=== PATIENT | female | born 1995 | race Caucasian/White ===

== ENCOUNTER → 2022-01-03 | Outpatient (CLI) | payer BC, SELFPAY ==
[2022-01-03 17:25] LABS: hCG Titer Quant., Serum 444 mIU/mL (1-3)
== END | disposition home or self-care (01) ==
LOC: LAB 16:12
PROVIDERS: Nurse Practitioner Women's Health; PCP Family Medicine; Referring Provider Obstetrics & Gynecology; Visit Provider Obstetrics & Gynecology
DX: N91.2 Amenorrhea, unspecified (principal)
CPT/HCPCS: 36415; 84702

== ENCOUNTER → 2022-01-05 | Outpatient (CLI) | payer BC, SELFPAY ==
[2022-01-05 18:03] LABS: hCG Titer Quant., Serum 845 mIU/mL (1-3)
== END | disposition home or self-care (01) ==
LOC: LAB 16:07
PROVIDERS: PCP Family Medicine; Referring Provider Nurse Practitioner Women's Health; Visit Provider Nurse Practitioner Women's Health
DX: N91.2 Amenorrhea, unspecified (principal)
CPT/HCPCS: 36415; 84702

== ENCOUNTER → 2022-01-24 | Outpatient (CLI) | payer BC, SELFPAY ==
[2022-01-24 12:22] LABS: Amphetamine Urine VISTA NEGATIVE (<1000 ng/mL); Barbiturate Urine VISTA NEGATIVE (< 200 ng/mL); Benzodiazepine Urine VISTA NEGATIVE (< 200 ng/mL); Cocaine Urine VISTA NEGATIVE (< 300 ng/mL); Ecstacy Urine VISTA NEGATIVE (< 500 ng/mL); Methadone Urine VISTA NEGATIVE (< 300 ng/mL); PCP Urine VISTA NEGATIVE (< 25 ng/mL); THC Urine VISTA NEGATIVE (< 50 ng/mL); Vista UDS pH Range 7
[2022-01-25 22:07] LABS: Chlamydia By Nucleic Acid AMP Negative (Negative)
[2022-01-25 22:29] LABS: Gonococcus By Nucleic Acid AMP Negative (Negative)
== END | disposition home or self-care (01) ==
LOC: LABSPEC 01-27 04:54
PROVIDERS: PCP Family Medicine; Visit Provider Obstetrics & Gynecology
DX: Z34.80 Encounter for supervision of other normal pregnancy, unspecified trimester (principal)
CPT/HCPCS: 80307; 87086; 87088; 87491; 87591

== ENCOUNTER 2022-02-20 16:55 | Outpatient (CLI) | payer BC, SELFPAY ==
[2022-02-20 18:02] LABS: NATERA MAILED SPECIMEN
== END 2022-02-20 23:59 | disposition home or self-care (01) ==
LOC: LAB 16:58
PROVIDERS: PCP Family Medicine; Referring Provider Obstetrics & Gynecology; Visit Provider Obstetrics & Gynecology
DX: Z00.00 Encounter for general adult medical examination without abnormal findings (principal)
CPT/HCPCS: 36415

== ENCOUNTER → 2022-03-30 | Outpatient (CLI) | payer BC, SELFPAY ==
--- NOTE | 2022-03-30 09:13 | US_ITS ---
EXAM: US , LIMITED CLINICAL INDICATION: bleeding TECHNIQUE: Real-time limited ultrasound of the maternal uterus with image documentation. This report was created using CoaLogixcriptor report generation technology. COMPARISON: None. FINDINGS: FETUS: Single live intrauterine gestation in variable lie and presentation. HEART RATE: cardiac rate is 148 bpm. PLACENTA: Anterior placenta without previa. Inferior margin of the placenta is 2.5 cm from the internal cervical os. CERVIX: Endocervical canal measures 3.9 cm in length by endovaginal scan. IMPRESSION: Live fetus without evidence of placenta previa or cervical effacement. Electronically Signed: Bennett Jenkins MD at 15:53 EDT , [email or web address] Unformatted Report Format: Options: n 2f 2i act cap dr moody wm wcta sl lj Gender: Female Age: 27 years Exam: US OB Transvaginal Comparison: History: bleeding Contrast: EXAM: US , LIMITED CLINICAL INDICATION: bleeding TECHNIQUE: Real-time limited ultrasound of the maternal uterus with image documentation. This report was created using Co[employer]Logixcriptor report generation technology. COMPARISON: None. FINDINGS: FETUS: Single live intrauterine gestation in variable lie and presentation. HEART RATE: cardiac rate is 148 bpm. PLACENTA: Anterior placenta without previa. Inferior margin of the placenta is 2.5 cm from the internal cervical os. CERVIX: Endocervical canal measures 3.9 cm in length by endovaginal scan. US/OB Limited (No Biometrics) IMPRESSION: Live fetus without evidence of placenta previa or cervical effacement. Electronically Signed: Bennett Jenkins MD at 15:54 EDT ,
== END | disposition home or self-care (01) ==
LOC: OPUS 09:13
PROVIDERS: PCP Family Medicine; Referring Provider Obstetrics & Gynecology; Visit Provider Obstetrics & Gynecology
DX: O26.859 Spotting complicating pregnancy, unspecified trimester (principal); Z3A.00 Weeks of gestation of pregnancy not specified
CPT/HCPCS: 76815; 76817

== ENCOUNTER → 2022-05-17 | Outpatient (CLI) | payer BC, SELFPAY ==
[2022-05-17 16:45] LABS: Absolute Lymphocyte Count 2.04 X10^3/uL (0.83-4.51); Absolute Neutrophil Count 6.8 X10^3/uL (2.0-7.7); Basophil# 0.02 X10^3/uL; Basophil% 0.2 % (0-1); Eosinophil# 0.09 X10^3/uL; Eosinophils% 0.9 % (0-5); Hematocrit 36.1 % (37-47); Lymphocyte # 2.04 X10^3/ul (0.83-4.51); Lymphocyte % 20.6 % (19-41); Mean Corp Hgb Conc 33.2 g/dL (32-36); Mean Corpuscular Hgb 28.1 pg (27.0-32.0); Mean Corpuscular Volume 84.5 fL (81-99); Mean Platelet Vol. 9.5 fl (6.2-12.0); Monocyte# 0.88 X10^3/uL; Monocyte% 8.9 % (0-10); NRBC Flagged by Analyzer 0 % (0-5); Neutrophil # 6.78 X10^3/uL (2.7-7.7); Neutrophil % 68.3 % (47-70); Platelet Count 340 K/mm3 (150-450); RBC Distribution Width CV 14.4 % (11.6-14.6); RBC Distribution Width SD 44.8 fl (35.1-43.9); Red Blood Count 4.27 M/mm3 (4.2-5.4); White Blood Count 9.9 K/mm3 (4.4-11.0)
[2022-05-18 08:51] LABS: HIV - WCH Non-Reactive (Nonreactive); Hepatitis B Surface Antigen Non-Reactive (Nonreactive); Hepatitis C Antibody Non-Reactive (Nonreactive); Rubella IgG Reactive (Nonreactive); Syphilis Antibodies Non-reactive
== END | disposition home or self-care (01) ==
LOC: LAB 16:05
PROVIDERS: PCP Family Medicine; Visit Provider Obstetrics & Gynecology
DX: Z34.80 Encounter for supervision of other normal pregnancy, unspecified trimester (principal)
CPT/HCPCS: 36415; 85025; 86703; 86762; 86780; 86803; 86850; 86900; 86901; 87340

== ENCOUNTER → 2022-06-12 | Outpatient (CLI) | payer BC, SELFPAY ==
[2022-06-12 16:07] LABS: Glucose Challenge Gest 1H 50g 133 mg/dL (70-140)
== END | disposition home or self-care (01) ==
LOC: PAVLAB 15:25
PROVIDERS: PCP Family Medicine; Referring Provider Obstetrics & Gynecology; Visit Provider Obstetrics & Gynecology
DX: Z34.80 Encounter for supervision of other normal pregnancy, unspecified trimester (principal)
CPT/HCPCS: 36415; 82950

== ENCOUNTER → 2022-06-19 | Outpatient (CLI) | payer BC, SELFPAY ==
--- NOTE | 2022-06-19 15:00 | US_ITS ---
STUDY: SECOND AND THIRD TRIMESTER OBSTETRICAL ULTRASOUND - LIMITED REASON FOR EXAM: Female, 27 years old. placenta follow-up -- 28 weeks PRIOR ULTRASOUND: 03/30/2022. TECHNIQUE: Transabdominal and Transvaginal TECHNICAL QUALITY: Adequate. FINDINGS: There is a single intrauterine fetus. The fetus is in a breech presentation. There is demonstrated cardiac activity with a heart rate of 145 bpm. There is a normal amniotic fluid volume. The largest amniotic fluid pocket measures 3.8 cm. The placenta is anterior in location and is not low lying. There are Grade 0 placental changes. The cervix measures cm in length: 4.6. Placental tip is 47mm from the internal cervical os. BIOMETRY: not obtained. Age by LMP: 28 weeks, 1 days. ANGEL by LMP: 1.15.23. US/OB Limited (No Biometrics) IMPRESSION: There is a single live intrauterine with a heart rate of 145 bpm. Placental tip is 47mm from the internal cervical os. Electronically Signed: Get Dean MD at 17:45 EDT ,
== END | disposition home or self-care (01) ==
PROVIDERS: PCP Family Medicine; Referring Provider Obstetrics & Gynecology; Visit Provider Obstetrics & Gynecology
DX: O44.42 Low lying placenta NOS or without hemorrhage, second trimester (principal)
CPT/HCPCS: 76815; 76817

== ENCOUNTER → 2022-08-17 | Outpatient (CLI) | payer OTHER, SELFPAY | END | disposition home or self-care (01) | LOC: LABSPEC 15:19 | PROVIDERS: PCP Family Medicine; Visit Provider Obstetrics & Gynecology | DX: Z34.90 Encounter for supervision of normal pregnancy, unspecified, unspecified trimester (principal) | CPT/HCPCS: 87081 ==

== ENCOUNTER 2022-09-03 01:37 | Inpatient (IN) | payer OTHER, SELFPAY ==
[2022-09-03] VITALS (22 sets, daily range): BP systolic 119–165; BP diastolic 66–97; PULSE 77–115; RESP 14–16; TEMP 36.4–37.1; O2SAT 96–99; BMI 25.1
[2022-09-03 01:36] LABS: ROM Internal Control Test YES-OK TO RESULT pt. (Internal QC); ROM Patient Test POSITIVE (Negative)
[2022-09-03] MEDS: Lactated Ringers 1,000 ML 50 ML IV (02:05)
[2022-09-03] MEDS: LACTATED RINGERS 500 ML 999 ML IV (02:06)
[2022-09-03 02:17] LABS: Absolute Lymphocyte Count 2.68 X10^3/uL (0.83-4.51); Absolute Neutrophil Count 6.3 X10^3/uL (2.0-7.7); Basophil# 0.04 X10^3/uL; Basophil% 0.4 % (0-1); Eosinophil# 0.17 X10^3/uL; Eosinophils% 1.7 % (0-5); Hematocrit 33.9 % (37-47); Hemoglobin 10.8 g/dL (12.0-15.0); Lymphocyte # 2.68 X10^3/ul (0.83-4.51); Mean Corp Hgb Conc 31.9 g/dL (32-36); Mean Corpuscular Hgb 23.9 pg (27.0-32.0); Mean Corpuscular Volume 75.2 fL (81-99); Mean Platelet Vol. 10.5 fl (6.2-12.0); Monocyte# 0.94 X10^3/uL; Monocyte% 9.1 % (0-10); NRBC Flagged by Analyzer 0.2 % (0-5); Neutrophil % 61.2 % (47-70); Platelet Count 309 K/mm3 (150-450); RBC Distribution Width SD 40.4 fl (35.1-43.9); Red Blood Count 4.51 M/mm3 (4.2-5.4); White Blood Count 10.3 K/mm3 (4.4-11.0)
[2022-09-03 02:32] LABS: AST(SGOT) 22 U/L (15-37); Alanine Aminotransfer ALT/SGPT 19 U/L (13-56); Creatinine, Serum 0.74 mg/dL (0.55-1.02); EST Glomerular Filtration Rate 98 mL/min (>60); Est Glom Filt Rate - Afr Amer 119 mL/min (>60); Estimated Creatinine Clearance 80.57 ml/min; Uric Acid 5.5 mg/dL (2.6-6.0)
[2022-09-03 02:35] LABS: Protein, Urine (Random) 38.2 mg/dL (<11.9); Protein:Creat Ratio 316 mg/g CRE (0-200)
[2022-09-03] MEDS: Ondansetron 4 MG/2 ML Vial IV (02:52)
--- NOTE | 2022-09-03 04:55 | HP.PCM.OB_ITS ---
HPI - General General Date of Admission: 09/03/22 HPI Narrative ANGIE MICHEL, is a 27 F who presents IALprogressing quickly. Maternal Data Information ANGEL Calculator Estimated Delivery Date Method Current WG Current Estimate 09/10/22 LMP (Certain) 39w 0d Other Estimates 09/09/22 Ultrasound #1 39w 1d PFSH PFSH Medical History Miscarriage Home Medications loratadine 10 mg tablet (Claritin) 10 mg PO DAILY 12/27/21 [History Last Taken Unknown] prenat.vits,samina,oxf-[id number]-scszf 1 tab PO DAILY 01/09/22 [History Last Taken 09/02/22 23:00] Allergy/AdvReac Type Severity Reaction Status Date / Time fluticasone [From Flonase] Allergy Mild migraines Verified 09/03/22 00:42 Family History Grandmother Breast cancer great grandmother Grandfather Diabetes Heart disease Surgical History [place] teeth extracted Social History adopted: No household members: spouse current occupational status: employed current occupation: [employer] pets and animals: No Smoking Status: Never smoker alcohol intake: never substance use type: does not use caffeine: No what type of physical activity do you participate in: walking frequency: 1-2 times per week seatbelt use: always do you feel safe at home: Yes additional social history: -Huseyin History 2 Elective abortions Hx Para 0 Spontaneous abortions 1 Hx # Term Pregnancies Ectopic pregnancies Hx # Pregnancies Multiple births # of living children Past Pregnancies Del. Date Name GA/Weeks Outcome Route Bth Weight Gen Labor Lgth Anesthesia Del Locatn Provider FOB Unknown 06/2021 miscarriage spontaneous Delivery Date: Last Updated by: Sola De Los Santos BRIM MOLDER, BRIM MOLDER-C no intervention Visit Details Expected Delivery Route/Plan Labor Preferences- CB/BF classes: taking labor support person: labor intervention preferences: pain management options preferred: [] cut cord/dad catch: : both PP control planned: [] discussed possible routes of delivery and associated risks: [] special requests: [] Plans Covid status: [] Flu vaccine: [] Tdap vaccine: un-decided Rhogam: [] LARC form signed: signed movement and labor precautions reviewed. Problem list reviewed and updated with the most current plan of care details and appropriate orders placed. Relevant counseling for the gestational age provided. Continue routine care and follow up unless otherwise noted in visit notes/problem list details OB Flowsheet Initial Weight: Not Recorded Date -?-?-?-?-?-?-?-?-?-?-?-?- EGA Weight BP Urine Prot -?-?-?-?-?-?-?-?-?-?-?-?- Glucose FHR FuHt Pres Dilation -?-?-?-?-?-?-?-?-?-?-?-?- Effaced St Visit Note 01/24/22 -?-?-?-?-?-?-?-?-?-?-?-?- 7w 2d 56.302 kg 120/82 -?-?-?-?-?-?-?-?-?-?-?--?- 139 -?-?-?-?-?-?-?-?-?-?-?-?- JV- crl consiste nt with LMP. pt has a lot of nausea. will try diclegis to start 02/20/22 -?-?-?-?-?-?-?-?-?-?-?-?- 11w 1d 54.431 kg 120/82 -?-?-?-?-?-?-?-?-?-?-?-?- 140 -?-?-?-?-?-?-?-?-?-?-?-?- SM- no vb crampi ng 03/22/22 -?-?-?--?-?-?-?-?-?-?-?-?- 15w 3d 53.524 kg 100/78 Negati ve -?-?-?-?-?-?-?-?-?-?-?-?- Negative 153 -?-?-?-?-?-?-?-?-?-?-?-?- JV- anatomy ultr asoun orderd. pt has some round ligamenet pain. recommend tylenol, hydration, rest. PTL precautions disussed. 04/21/22 -?-?-?-?-?-?-?-?-?-?-?-?- 19w 5d 55.792 kg 114/60 -?-?-?-?-?-?-?-?-?-?-?-?- 155 -?-?-?-?-?-?-?-?-?-?-?-?- JV- normal anato my with exception of low lying placenta 7mm from cx. pelvic rest discussed. 05/17/22 -?-?-?-?-?-?-?-?-?-?-?-?- 23w 3d 56.245 kg 119/74 Negati ve -?-?-?-?-?-?-?-?-?-?-?-?- Negative 161 -?-?-?-?-?-?-?-?-?-?-?-?- JV- new ob labs needed. no complaints today. rpt ultrasound ordered with the hospital to look at placenta at 28 weeks. 06/12/22 -?-?-?-?-?-?-?-?-?-?-?-?- 27w 1d 57.323 kg 124/76 Negati ve -?-?-?-?-?-?-?-?-?-?-?-?- Negative 150 27 -?-?-?-?-?-?-?-?-?-?-?-?- SM- no vb lof go od fm no regualr ctx 07/05/22 -?-?-?-?-?-?-?-?-?--?-?-?- 30w 3d 57.266 kg 130/80 Negati ve -?-?-?-?-?-?-?-?-?-?-?-?- Negative 145 29 -?-?-?-?-?-?-?-?-?-?-?-?- JV- placenta no longer low lying 07/19/22 -?-?-?-?-?-?-?-?-?-?-?-?- 32w 3d 57.72 kg 128/75 -?-?-?-?-?-?-?-?-?-?-?-?- 135 31 -?-?-?-?-?-?-?-?-?-?-?-?- JV- no lof, vagi nal bleeding, or dec fm. no complaints today 08/02/22 -?-?-?-?-?-?-?-?-?-?-?-?- 34w 3d 58.513 kg 136/86 Negati ve -?-?-?-?-?-?-?-?-?-?-?-?- Negative 138 34 Cephalic -?-?-?-?-?-?-?-?-?-?-?-?- LC- no lof, ctx, vb. good fm. tdap reviewed and is thinking about this. will call for RN visit if she desires prior to next visit. 08/17/22 -?-?-?-?-?-?-?-?-?-?-?-?- 36w 4d 58.06 kg 119/82 Negativ e -?-?-?-?-?-?-?-?-?-?-?-?- Negative 126 36 Cephalic 1 -?-?-?-?-?-?-?-?-?-?-?-?- 80 -2 JV- GBS co llected. pt and both have influenza A right now. labor precautions discussed. 08/23/22 -?-?-?-?-?-?-?-?-?-?-?-?- 37w 3d 59.137 kg 128/82 Negati ve -?-?-?-?-?-?-?-?-?-?-?-?- Negative 146 37 Cephalic 2 -?-?-?-?-?-?-?-?-?-?-?-?- 80 -1 MH-No VB, LOF. Good FM. No reg CTX. reviewed S&S labor 08/31/22 -?-?-?-?-?-?-?-?-?-?-?-?- 38w 4d 58.627 kg 138/89 -?-?-?-?-?-?-?-?-?-?-?-?- 140 38 Cephalic 3 -?-?-?-?-?-?--?-?-?-?-?-?- 80 -1 SM- no vb lof good fm no regular ctx but cramping prelabor 09/03/22 -?-?-?-?-?-?-?-?-?-?-?-?- 39w 0d 58.332 kg 146/93 165/97 144/94 143/85 -?-?-?-?-?-?-?-?-?-?-?-?- -?-?-?-?-?-?-?-?-?-?-?-?- NST FHR Rate Baby A Baseline: 140 Variability:: Moderate Accelerations:: 15 x 15 Decelerations:: None NST Reactive:: Yes FHR Category:: Category I Uterine Activity:: q3-5 ROS Constitutional Constitutional: Reports systems reviewed and no addt'l complaints, except as documented ENT HEENT: Reports systems reviewed and no addt'l complaints, except as documented Cardiovascular Cardiovascular: Reports systems reviewed and no addt'l complaints, except as documented Respiratory/Chest Respiratory/Chest: Reports systems reviewed and no addt'l complaints, except as documented Gastrointestinal Gastrointestinal: Reports systems reviewed and no addt'l complaints, except as documented and nausea; Denies abdominal pain Genitourinary Genitourinary: Reports systems reviewed and no addt'l complaints, except as documented, contractions Details: present and frequency (regular ) and movement Details: present Musculoskeletal Musculoskeletal: Reports systems reviewed and no addt'l complaints, except as documented Integumentary Integumentary: Reports as per HPI Neurologic Neurologic: Reports systems reviewed and no addt'l complaints, except as documented Endocrine Endocrinology: Reports systems reviewed and no addt'l complaints, except as documented Vital Signs Vital Signs Vital Signs: 09/03/22 00:38 09/03/22 00:38 09/03/22 00:38 Temperature Temperature Source Temporal Pulse Rate 86 Blood Pressure 146/93 H BP Systolic 146 BP Diastolic 93 09/03/22 00:38 09/03/22 00:55 09/03/22 00:55 Temperature 98.8 F Temperature Source Pulse Rate 80 Blood Pressure 165/97 H BP Systolic 165 BP Diastolic 97 09/03/22 01:10 09/03/22 01:10 09/03/22 04:40 Temperature Temperature Source Pulse Rate 77 Blood Pressure 144/94 H 143/85 H BP Systolic 144 143 BP Diastolic 94 85 09/03/22 04:40 09/03/22 04:40 09/03/22 04:40 Temperature 97.6 F L Temperature Source Temporal Pulse Rate 115 H Blood Pressure BP Systolic BP Diastolic Weight Weight: 58.332 kg Body Mass Index (BMI) 25.1 Physical Exam Const alert, oriented x3 and healthy appearing Constitutional Narrative: uncomfortable with contractions HEENT normocephalic and moist oral mucous membranes Head and Scalp: atraumatic Neck full ROM, no lymphadenopathy, supple and thyroid normal General: trachea midline Thyroid: thyroid normal Lymph Lymphatic: no lymphadenopathy noted Chest inspection of chest normal Resp normal respiratory effort Cardio regular rate GI normal to inspection, nondistended, normoactive bowel sounds, soft to palpation and non-tender Inspection: gravid external exam normal Bimanual Exam - Vag & Uterus: uterus non-tender Manual OB Exam: estimated gestational size appropriate, presentation cephalic, dilated, effaced and station Extremity normal to inspection General Extremity: Negative for edema Skin no rashes or lesions noted Neuro deep tendon reflexes 2+ bilaterally Motor Exam: strength 5/5 throughout and clonus absent Psych mental status grossly normal Labs Labs Labs: Blood Type O POSITIVE Antibody Screen NEGATIVE Hct 33.9 % (37-47) L Hgb 10.8 g/dL (12.0-15.0) L Obstetrics US Syphilis Total Ab Non-reactive Rubella IgG Antibody Reactive (Nonreactive) Hep Bs Antigen Non-Reactive (Nonreactive) Chlamydia DNA (JUNITO) Negative (Negative) Neisseria gonorrhoeae DNA (JUNITO) Negative (Negative) HIV 1&2 Antibody Non-Reactive (Nonreactive) Glucose 1 Hr 50 gm 133 mg/dL (70-140) Assessment & Plan (1) : QUALIFIERS: Weeks of gestation: 38 weeks Qualified Code(s): Z3A.38 - 38 weeks gestation of COMMENT: GBS negative,anatomy nl, NIPT low risk, nl GCT (2) Supervision of other normal : COMMENT: [id number] ANGEL:09/10/22 Sp Huseyin (3) Active labor at term: PLAN: Plan Patient presents ial exp management. Pain management: no epidural due to progression, pudendal block done. GBS neg. Management of any complications: none I have reviewed the [facility] and made any clinically relevant updates.
--- NOTE | 2022-09-03 04:58 | EX.PCM.OBRPT ---
Assessment & Plan (1) Active labor at term: (2) : QUALIFIERS: Weeks of gestation: 38 weeks Qualified Code(s): Z3A.38 - 38 weeks gestation of COMMENT: GBS negative,anatomy nl, NIPT low risk, nl GCT (3) Supervision of other normal : COMMENT: [id number] ANGEL:09/10/22 Sp Huseyin Maternal Data Information ANGEL Calculator Estimated Delivery Date Method Current WG Current Estimate 09/10/22 LMP (Certain) 39w 0d Other Estimates 09/09/22 Ultrasound #1 39w 1d Vaginal Delivery Operative Information Date of Procedure: 09/03/22 Pre-Operative Diagnosis: IAL Post-Operative Diagnosis: same Surgery / Procedure Performed: Spontaneous Vaginal Delivery Type of Anesthesia: Pudendal Block Special Medications: none Estimated Blood Loss: 200 Fluids Replaced: crystalloid Findings Description of Procedure: Patient began pushing and delivered the head in the VILMA presentation. The head was delivered atraumatically and a tight nuchal cord x 2 was encountered. The anterior shoulders delivered without complication but the rest of the was trapped and therefore the nuchal cord was cut o nthe perineum and then rest of the infant delivered and the was placed on the maternal abdomen. Delayed cord clamping was employed for approximately 60 seconds. Cord was clamped and cut and gentle traction was applied to the cord and the placenta delivered spontaneously immediately following it was noted to be intact with three-vessel cord. The perineum and vagina were inspected and noted to have no laceration. EBL was 200. Patient and infant tolerated delivery well. Presentation: VILMA Amniotic Membrane Rupture Type: Spontaneous Amniotic Fluid Description: Clear Placental Delivery Description: Spontaneous Placenta Disposition: [facility] Cord Vessel Description: 3 Vessels Cord Entanglement: None Delayed Cord Clamping: Yes Post Vaginal Delivery Medications Given After Delivery: IV Pitocin Episiotomy Description: None Laceration: None Complication Complications: None Procedures Urinary/Genital [id number]: [id number] Vaginal Delivery [facility]
--- NOTE | 2022-09-03 05:04 | DCINST_ITS ---
Discharge Instructions Diet Discharge Diet: No restrictions Activity Discharge Activity: Return to Normal Activity, May Drive, May Shower and May Take a Tub Bath (in 4 weeks) May resume sexual activity in: 6-8 weeks (after seen by OB provider) Weight Bearing Status: Full weight bearing Lifting Restrictions: none Dressing / Incision Call your doctor if you observe: Fever of 101 or Higher, Inability to urinate, Using more than 1 pad per hour (for more than 2 hours in a row or more), Shortness of breath, Dizziness, Chest pain and - (headache not controlled with tylenol, change in vision) Follow Up Care When: in 6 weeks for visit, call the office to make the appointment. If you had elevated blood pressures call the office to be seen within 1 week. Test Results: Test results from this visit will be discussed in further detail at your follow- up appointment, if applicable. Discharge Plan Admission Admit Date/Time: 09/03/22 01:37 Attending Provider: Zari Ward Primary Care Provider: Sanaz Ku Discharge Orders/Prescriptions Prescriptions: No Action loratadine [Claritin] 10 mg tablet 10 mg PO DAILY prenat.vits,samina,ehu-srlh-wrlvw Tablet 1 tab PO DAILY Referrals / Follow Up: Sanaz Ku [Primary Care Provider] - Disposition Disposition (needs filled in before D/C Order can be placed): Home, Self Care
[2022-09-03] MEDS: Oxytocin 10 UNITS/ML Vial IM (06:14)
[2022-09-03] MEDS: Acetaminophen 500 MG Tablet PO (07:43)
[2022-09-03] MEDS: Naproxen 500 MG Tablet PO ×2 (08:25→16:46)
[2022-09-03] MEDS: Acetaminophen 500 MG Tablet 1000 MG PO (15:21)
--- NOTE | 2022-09-03 17:55 | NURSING ---
09/03/22 0230 late entry per this RN d/t unit census - patient eligible for IA d/t unable to get epidural due to rapid labor but patient declines IA at this time
[2022-09-04] VITALS (7 sets, daily range): BP systolic 121–127; BP diastolic 73–77; PULSE 72–87; RESP 14–16; TEMP 36.3–36.6
[2022-09-04] MEDS: Naproxen 500 MG Tablet PO ×2 (01:17→09:37)
--- NOTE | 2022-09-04 08:45 | PCM.PN.OB ---
Subjective Subjective Patient doing well without complaints. Tolerating PO. Ambulating and voiding without difficulty. Feeding well. Denies chest pain, shortness of breath, calf pain/swelling, fevers, chills, lightheadedness. Objective Data Objective Data Vital Signs: Vital Signs Temp Pulse Resp BP Pulse Ox O2 Del Method 97.7 F L 72 14 127/76 H 97 Room Air 09/04/22 05:38 09/04/22 05:38 09/04/22 05:38 09/04/22 05:38 09/03/22 16:43 09/04/22 05:38 Oxygen Delivery Method Room Air Weight: 128 lb 9.6 oz Body Mass Index (BMI) 25.1 Intake & Output: Intake and Output for Last 24 Hours 09/02/22 09/03/22 09/04/22 23:59 23:59 23:59 Intake Total 1500.00 / 1500.00 Balance 1500.00 / 1500.00 Lab / Micro Data Result Diagrams: 09/03/22 02:05 09/03/22 02:05 Physical Exam Const alert, oriented x3 and no apparent distress HEENT normocephalic Resp normal respiratory effort GI normal to inspection, nondistended, normoactive bowel sounds GI Narrative: fundus firm at u, no clots. lochia rubra Extremity normal to inspection Skin no rashes or lesions noted Psych mental status grossly normal Assessment & Plan (1) (spontaneous vaginal delivery): COMMENT: IAL, 39 wks. boy Abilio. PLAN: Plan s/p PPD # 1, normal pp exam. stable for d/c 1. routine post delivery care 2. breast feeding- support given 3. rh positive 4. rubella immune 5. d/c home today
== END 2022-09-04 17:35 | disposition home or self-care (01) | DRG 807 ==
LOC: WPOUT 01:39 → WP 01:39
PROVIDERS: Admitting Provider Obstetrics & Gynecology; PCP Family Medicine; Visit Provider Obstetrics & Gynecology
DX: O42.92 Full-term premature rupture of membranes, unspecified as to length of time between rupture and onset of labor (principal); Z37.0 Single live birth; O69.2XX0 Labor and delivery complicated by other cord entanglement, with compression, not applicable or unspecified; Z79.899 Other long term (current) drug therapy; Z3A.38 38 weeks gestation of pregnancy; Z87.59 Personal history of other complications of pregnancy, childbirth and the puerperium
CPT/HCPCS: 59025; 59050; 82565; 82570; 84112; 84156; 84450; 84460; 84550; 85025; 86850; 86900; 86901; 99221; J7120; G0378; J2405

== ENCOUNTER → 2023-03-30 | Outpatient (CLI) | payer OTHER, SELFPAY ==
[2023-04-03 04:07] LABS: Chlamydia By Nucleic Acid AMP Negative (Negative); Gonococcus By Nucleic Acid AMP Negative (Negative)
[2023-04-04 15:08] LABS: HPV APTIMA, High Risk Negative (Negative)
== END | disposition home or self-care (01) ==
LOC: LABSPEC 10:34
PROVIDERS: PCP Family Medicine; Referring Provider Registered Nurse; Visit Provider Registered Nurse
DX: Z34.90 Encounter for supervision of normal pregnancy, unspecified, unspecified trimester (principal)
CPT/HCPCS: 87077; 87086; 87088; 87186; 87491; 87591; 87624; 88175; G0145

== ENCOUNTER → 2023-04-09 | Outpatient (CLI) | payer OTHER, SELFPAY ==
[2023-04-09 10:17] LABS: Absolute Lymphocyte Count 1.71 X10^3/uL (0.83-4.51); Absolute Neutrophil Count 5.2 X10^3/uL (2.0-7.7); Basophil# 0.03 X10^3/uL; Basophil% 0.4 % (0-1); Eosinophil# 0.16 X10^3/uL; Eosinophils% 2.1 % (0-5); Hematocrit 39.7 % (37-47); Hemoglobin 12.7 g/dL (12.0-15.0); Lymphocyte # 1.71 X10^3/ul (0.83-4.51); Lymphocyte % 22.3 % (19-41); Mean Corpuscular Hgb 25.4 pg (27.0-32.0); Mean Corpuscular Volume 79.4 fL (81-99); Mean Platelet Vol. 9.5 fl (6.2-12.0); Monocyte# 0.52 X10^3/uL; Monocyte% 6.8 % (0-10); NRBC Flagged by Analyzer 0 % (0-5); Neutrophil # 5.24 X10^3/uL (2.7-7.7); Neutrophil % 68.1 % (47-70); Platelet Count 314 K/mm3 (150-450); RBC Distribution Width CV 15.1 % (11.6-14.6); RBC Distribution Width SD 43.3 fl (35.1-43.9); White Blood Count 7.7 K/mm3 (4.4-11.0)
[2023-04-09 11:01] LABS: NATERA MAILED SPECIMEN
[2023-04-09 11:26] LABS: HIV - WCH Non-Reactive (Nonreactive); Hepatitis B Surface Antigen Non-Reactive (Nonreactive); Hepatitis C Antibody Non-Reactive (Nonreactive); Rubella IgG Reactive (Nonreactive); Syphilis Antibodies Non-reactive
== END | disposition home or self-care (01) ==
PROVIDERS: Referring Provider Registered Nurse; Visit Provider Registered Nurse
DX: Z34.81 Encounter for supervision of other normal pregnancy, first trimester (principal)
CPT/HCPCS: 36415; 85025; 86703; 86762; 86780; 86803; 86850; 86900; 86901; 87340

== ENCOUNTER → 2023-06-11 | Outpatient (CLI) | payer OTHER, SELFPAY ==
--- NOTE | 2023-06-11 14:17 | US_ITS ---
INDICATION: anatomy/ cervical length. anatomy. EXAMINATION: Ultrasound US OB Greater Than 14 Weeks TECHNIQUE: Transabdominal and transvaginal pelvic ultrasound was performed. COMPARISON: No relevant prior comparison study available LMP: Unknown. Beta-hCG: Unknown. Provided EGA: 19 weeks, 6 days FINDINGS: INTRAUTERINE GESTATION(s): Single. ESTIMATED GESTATIONAL AGE: 19 weeks, 3 days ESTIMATED DUE DATE (ANGEL): 11/02/2023 HEART MOTION is 148 bpm. MAXIMAL VERTICAL POCKET (RASHEL): 4.7 cm which is within normal limits ESTIMATED WEIGHT: 279 g Percentile 16th%. BIOPHYSICAL PROFILE (BPP): Not assessed. BIOMETRIC MEASUREMENTS: HEAD CIRCUMFERENCE: 4.50 cm which corresponds to 19 weeks 4 days. BIPARIETAL DIAMETER: 17.2 cm which corresponds to 19 weeks 5 days. ABDOMINAL CIRCUMFERENCE: 13.5 cm which corresponds to 19 weeks 0 days. FEMORAL LENGTH: 3.0 cm which corresponds to 19 weeks, 2 days. ANATOMY: CRANIUM: Lateral ventricles, choroid plexus, cerebellum, cisterna magna and facial structures well visualized and normal. CHEST: Normal four-chamber view of the heart. ABDOMEN / PELVIS: The diaphragm, stomach, abdominal wall, cord insertion, three-vessel cord, kidneys and bladder are well visualized and normal. SPINE: The cervical, thoracic, lumbar and sacral spine are well visualized and normal. EXTREMITIES: The upper and lower extremities are well visualized and normal. PRESENTATION: Cephalic PLACENTA: Fundal. There is no placenta previa or abruption. The placenta is mildly low-lying, 3.7 cm from the cervix. Multiple placental lakes are present. CERVIX: The cervix is closed, and measures 4.4 cm. MATERNAL OVARIES: No adnexal masses. FREE FLUID: None. IMPRESSION: * Single live intrauterine with estimated gestational age by ultrasound of 19 weeks, 3 days, for an estimated date of delivery of 11/02/2023. * The cervix is closed, normal in appearance and measures 4.4 cm in length. * Normal anatomy. * The placenta is posterior mildly low-lying, however this is not unusual at this stage of the , and the placenta will likely continue to rise through the second and third trimesters. Electronically Signed: Cedric Farah MD at 17:43 EDT , INDICATION: anatomy/ cervical length. anatomy. EXAMINATION: Ultrasound US OB Greater Than 14 Weeks TECHNIQUE: Transabdominal and transvaginal pelvic ultrasound was performed. COMPARISON: No relevant prior comparison study available LMP: Unknown. Beta-hCG: Unknown. Provided EGA: 19 weeks, 6 days FINDINGS: INTRAUTERINE GESTATION(s): Single. ESTIMATED GESTATIONAL AGE: 19 weeks, 3 days ESTIMATED DUE DATE (ANGEL): 11/02/2023 HEART MOTION is 148 bpm. MAXIMAL VERTICAL POCKET (RASHEL): 4.7 cm which is within normal limits ESTIMATED WEIGHT: 279 g Percentile 16th%. BIOPHYSICAL PROFILE (BPP): Not assessed. BIOMETRIC MEASUREMENTS: HEAD CIRCUMFERENCE: 4.50 cm which corresponds to 19 weeks 4 days. BIPARIETAL DIAMETER: 17.2 cm which corresponds to 19 weeks 5 days. ABDOMINAL CIRCUMFERENCE: 13.5 cm which corresponds to 19 weeks 0 days. FEMORAL LENGTH: 3.0 cm which corresponds to 19 weeks, 2 days. ANATOMY: CRANIUM: Lateral ventricles, choroid plexus, cerebellum, cisterna magna and facial structures well visualized and normal. CHEST: Normal four-chamber view of the heart. ABDOMEN / PELVIS: The diaphragm, stomach, abdominal wall, cord insertion, three-vessel cord, kidneys and bladder are well visualized and normal. SPINE: The cervical, thoracic, lumbar and sacral spine are well visualized and normal. EXTREMITIES: The upper and lower extremities are well visualized and normal. PRESENTATION: Cephalic PLACENTA: Fundal. There is no placenta previa or abruption. The placenta is mildly low-lying, 3.7 cm from the cervix. Multiple placental lakes are present. CERVIX: The cervix is closed, and measures 4.4 cm. MATERNAL OVARIES: No adnexal masses. FREE FLUID: None. US/OB Anatomy Scan
== END | disposition home or self-care (01) ==
LOC: US 14:17
PROVIDERS: PCP Family Medicine; Referring Provider Obstetrics & Gynecology; Visit Provider Obstetrics & Gynecology
DX: O09.90 Supervision of high risk pregnancy, unspecified, unspecified trimester (principal); Z3A.00 Weeks of gestation of pregnancy not specified
CPT/HCPCS: 76805; 76817

== ENCOUNTER → 2023-08-08 | Outpatient (CLI) | payer OTHER, SELFPAY ==
[2023-08-08 15:24] LABS: Absolute Lymphocyte Count 1.61 X10^3/uL (0.83-4.51); Absolute Neutrophil Count 7.2 X10^3/uL (2.0-7.7); Basophil# 0.03 X10^3/uL; Basophil% 0.3 % (0-1); Eosinophil# 0.22 X10^3/uL; Eosinophils% 2.2 % (0-5); Hemoglobin 10.3 g/dL (12.0-15.0); Lymphocyte # 1.61 X10^3/ul (0.83-4.51); Lymphocyte % 16.4 % (19-41); Mean Corp Hgb Conc 32.2 g/dL (32-36); Mean Corpuscular Hgb 25.1 pg (27.0-32.0); Mean Corpuscular Volume 77.9 fL (81-99); Mean Platelet Vol. 8.8 fl (6.2-12.0); Monocyte# 0.72 X10^3/uL; Monocyte% 7.3 % (0-10); NRBC Flagged by Analyzer 0 % (0-5); Neutrophil # 7.17 X10^3/uL (2.7-7.7); Neutrophil % 73.2 % (47-70); Platelet Count 290 K/mm3 (150-450); RBC Distribution Width CV 14.1 % (11.6-14.6); RBC Distribution Width SD 39.8 fl (35.1-43.9); Red Blood Count 4.11 M/mm3 (4.2-5.4); White Blood Count 9.8 K/mm3 (4.4-11.0)
[2023-08-08 16:07] LABS: Glucose Challenge Gest 1H 50g 136 mg/dL (70-140)
[2023-08-08 16:25] LABS: HIV - WCH Non-Reactive (Nonreactive); Syphilis Antibodies Non-reactive
== END | disposition home or self-care (01) ==
LOC: LAB 14:58
PROVIDERS: PCP Family Medicine; Referring Provider Obstetrics & Gynecology; Visit Provider Obstetrics & Gynecology
DX: O09.90 Supervision of high risk pregnancy, unspecified, unspecified trimester (principal); Z3A.00 Weeks of gestation of pregnancy not specified
CPT/HCPCS: 36415; 82950; 85025; 86703; 86780

== ENCOUNTER → 2023-08-14 | Outpatient (CLI) | payer OTHER, SELFPAY ==
[2023-08-14 10:31] LABS: Glucose GTT-Gestation. Fasting 80 mg/dL (<105)
[2023-08-14 12:41] LABS: Glucose GTT-Gestational 2 Hr 135 mg/dL (<165)
[2023-08-14 12:59] LABS: Glucose GTT-Gestational 1 Hr 145 mg/dL (<190)
[2023-08-14 13:09] LABS: Glucose GTT-Gestational 3 Hr 132 L (<145)
== END | disposition home or self-care (01) ==
LOC: LAB 09:40
PROVIDERS: PCP Family Medicine; Referring Provider Obstetrics & Gynecology; Visit Provider Obstetrics & Gynecology
DX: Z13.1 Encounter for screening for diabetes mellitus (principal)
CPT/HCPCS: 36415; 82951; 82952

== ENCOUNTER → 2023-09-19 | Outpatient (CLI) | payer OTHER, SELFPAY ==
[2023-09-19 15:23] LABS: Absolute Lymphocyte Count 1.84 X10^3/uL (0.83-4.51); Absolute Neutrophil Count 6.3 X10^3/uL (2.0-7.7); Basophil# 0.01 X10^3/uL; Basophil% 0.1 % (0-1); Eosinophil# 0.14 X10^3/uL; Eosinophils% 1.6 % (0-5); Hematocrit 32.4 % (37-47); Lymphocyte # 1.84 X10^3/ul (0.83-4.51); Lymphocyte % 20.6 % (19-41); Mean Corp Hgb Conc 30.9 g/dL (32-36); Mean Corpuscular Hgb 22.7 pg (27.0-32.0); Mean Corpuscular Volume 73.5 fL (81-99); Mean Platelet Vol. 9.5 fl (6.2-12.0); Monocyte# 0.58 X10^3/uL; Monocyte% 6.5 % (0-10); NRBC Flagged by Analyzer 0 % (0-5); Neutrophil # 6.31 X10^3/uL (2.7-7.7); Neutrophil % 70.5 % (47-70); Platelet Count 233 K/mm3 (150-450); RBC Distribution Width CV 14.4 % (11.6-14.6); RBC Distribution Width SD 38.4 fl (35.1-43.9); Red Blood Count 4.41 M/mm3 (4.2-5.4); White Blood Count 8.9 K/mm3 (4.4-11.0)
== END | disposition home or self-care (01) ==
LOC: LAB 14:50
PROVIDERS: PCP Family Medicine; Referring Provider Obstetrics & Gynecology; Visit Provider Obstetrics & Gynecology
DX: O99.019 Anemia complicating pregnancy, unspecified trimester (principal); Z3A.00 Weeks of gestation of pregnancy not specified
CPT/HCPCS: 36415; 85025

== ENCOUNTER → 2023-10-03 | Outpatient (CLI) | payer OTHER, SELFPAY ==
[2023-10-03 09:27] LABS: Absolute Lymphocyte Count 1.84 X10^3/uL (0.83-4.51); Absolute Neutrophil Count 5.9 X10^3/uL (2.0-7.7); Basophil# 0.05 X10^3/uL; Basophil% 0.6 % (0-1); Eosinophil# 0.16 X10^3/uL; Eosinophils% 1.9 % (0-5); Hematocrit 36.7 % (37-47); Hemoglobin 11.2 g/dL (12.0-15.0); Lymphocyte # 1.84 X10^3/ul (0.83-4.51); Lymphocyte % 21.3 % (19-41); Mean Corp Hgb Conc 30.5 g/dL (32-36); Mean Corpuscular Hgb 22.7 pg (27.0-32.0); Mean Corpuscular Volume 74.3 fL (81-99); Mean Platelet Vol. 9.9 fl (6.2-12.0); Monocyte# 0.65 X10^3/uL; Monocyte% 7.5 % (0-10); NRBC Flagged by Analyzer 0 % (0-5); Neutrophil # 5.85 X10^3/uL (2.7-7.7); Neutrophil % 67.8 % (47-70); Platelet Count 292 K/mm3 (150-450); RBC Distribution Width CV 16.8 % (11.6-14.6); RBC Distribution Width SD 41.7 fl (35.1-43.9); Red Blood Count 4.94 M/mm3 (4.2-5.4); White Blood Count 8.6 K/mm3 (4.4-11.0)
--- OUTSIDE RECORDS SUMMARY | 2023-10-03 09:36 | XMS RPT_ITS | CCD ---
Author Name Unknown Address [address] [place] [address] Organization [facility] Care Team Providers Care Inspector Casing Name Role Phone John Ladd Primary Care Provider Allergies Allergy Classification Reported Allergen(s) Allergy Type Date of Onset Reaction(s) Facility (2 sources) fluticasone Drug Allergy 09-26-2016 [facility] (See Comments[facility] [place] Medications Current Medications Medication Drug Class(es) Dates Sig (Normalized) Sig (Original) 200 actuat albuterol 0.09 mg/actuat metered dose inhaler (1 source) beta2-Adrenergic Agonist take 1 puff(s) by inhalation every six hours as needed for wheezing albuterol (PROVENTIL HFA;VENTOLIN HFA) 108 (90 BASE) MCG/ACT inhaler Inhale 1 puff into the lungs every 6 hours as needed for Wheezing 0 Active azelastine hydrochloride 0.137 mg/actuat metered dose nasal spray (1 source) Histamine-1 Receptor Antagonist take 1 spray(s) nasal route twice daily azelastine (ASTELIN) 0.1 % nasal spray 1 spray by Nasal route 2 times daily Use in each nostril as directed 0 Active ethinyl estradiol 0.035 mg / norethindrone 0.75 mg oral tablet (1 source) Estrogen Start: 02-13-2019 norethindrone-eth inyl estradiol (PIRMELLA ) 0.5/0.75/1-35 MG-MCG per tablet TAKE 1 TABLET DAILY 84 tablet 4 02/13/2019 Active montelukast 10 mg oral tablet (1 source) Leukotriene Receptor Antagonist Start: 04-05-2017 take 1 tablet by mouth once daily montelukast (SINGULAIR) 10 MG tablet Take 1 tablet by mouth nightly 30 tablet 11 04/05/2017 Active Vit w/Zw-Ihqiusavw-ED (PNV PO) (1 source) Vit w/Lr-Xxaqqhbdp-IW (PNV PO) Take by mouth 0 Active sodium chloride flush 0.9 % injection 3 mL (1 source) Start: 06-28-2021 sodium chloride flush 0.9 % injection 3 mL Completed/Discontinued Medications Medication Drug Class(es) Dates Sig (Normalized) Sig (Original) acetaminophen 500 mg oral tablet (1 source) Start: 06-28-2021 End: 06-28-2021 acetaminophen (TYLENOL) tablet 1,000 mg 2 ml ondansetron 2 mg/ml injection (1 source) Serotonin-3 Receptor Antagonist Start: 06-28-2021 End: 06-28-2021 ondansetron (ZOFRAN) injection 4 mg 50 ml sodium chloride 9 mg/ml injection (1 source) Start: 06-28-2021 End: 06-28-2021 0.9 % sodium chloride bolus Problems Active Problems Problem Classification Problem Date Documented Date Episodic/Chronic Anxiety disorders (2 sources) Generalized anxiety disorder; Translations: [Generalized anxiety disorder] Onset: 08-27-2013 04-05-2017 Chronic Contraceptive and procreative management (2 sources) Oral contraception; Translations: [Encounter for surveillance of contraceptive pills] 11-22-2017 Episodic Other upper respiratory disease (2 sources) Allergic rhinitis due to pollen; Translations: [Allergic rhinitis due to pollen] Onset: 04-05-2017 04-05-2017 Chronic Spontaneous (1 source) Miscarriage; Translations: [Complete or unspecified spontaneous without complication] Episodic Past or Other Problems Problem Classification Problem Date Documented Da te Episodic/Chronic Allergic reactions (2 sources) Eczema; Translations: [Dermatitis, unspecified] Onset: 11-22-2017 11-22-2017 Episodic Results Test Name Value Interpretation Reference Range Facil ity Vital Signs Date Time Vital Sign Value Performing Clinician Faci lity 06-28-2021 16:43-0400 Body mass index (BMI) [Ratio] 23.05 kg/m2 Candelaria Staton DO Work Phone: [employer] Work Phone: 06-28-2021 16:43-0400 Body temperature 97.59 [degF] Candelaria Staton DO Work Phone: [employer] Work Phone: 06-28-2021 16:43-0400 Body weight 53.52 kg Candelaria Staton DO Work Phone: [employer] Work Phone: 06-28-2021 16:43-0400 Diastolic blood pressure 75 mm[Hg] Candelaria Staton DO Work Phone: [employer] Work Phone: 06-28-2021 16:43-0400 Heart rate 87 /min Candelaria Staton DO Work Phone: [employer] Phone: 06-28-2021 16:43-0400 Respiratory rate 16 /min Candelaria Staton DO Work Phone: [employer] Phone: 06-28-2021 16:43-0400 SaO2% (BldA) [Mass fraction] 100 % Candelaria Staton DO Work Phone: [employer] Phone: 06-28-2021 16:43-0400 Systolic blood pressure 124 mm[Hg] Candelaria Staton DO Work Phone: [employer] Phone: Encounters Encounter Date Encounter Type Care Provider Facility Start: 06-28-2021 End: 06-28-2021 Emergency department patient visit Candelaria Staton DO Work Phone: [facility] ED Procedures Date Procedure Procedure Detail Performing Clinician Start: 06-28-2021 Us preg uterus real time w/image dcmtn bo Hicks PA-C Work Phone: Start: 06-28-2021 Blood typing serologic abo Candelaria Staton DO Work Phone: Start: 06-28-2021 End: 06-28-2021 Basic metabolic panel calcium total Candelaria Staton DO Work Phone: Start: 12-26-2019 Us abdominal real ti me w/image documentation Solfaiza Azar Ku Work Phone: Start: 02-13-2019 Microscopic observat ion [Identifier] in Cervix by Cyto stain Candelaria Staton DO Work Phone: Plan of Treatment Date Care Activity Detail Author Start: 03-09-2022 End: 03-09-2022 Patient encounter procedure 03/09/2022 Office Visit Obstetrics and Gynecology Katiuska Krueger MD [address] [place], [place] [id number] [facility] MDS MANAGER Start: 02-13-2022 Screening for malign ant neoplasm of cervix [place], [place] Start: 07-01-2021 End: 07-01-2021 Patient encounter procedure [facility] Start: 04-27-2021 Influenza vaccination Flu vaccine (# 1) [facility] Work Phone: Start: 04-27-2020 Influenza vaccination Flu vacc ine (Season Ended) [place], [place] Start: 02-19-2020 End: 02-19-2020 Office Visit 02/19/2020 Office Visit Obstetrics and Gynecology Katiuska Krueger MD [address] [place], [place] [id number] [facility] MDS MANAGER Start: 02-17-2012 DTaP/Tdap/Td vaccine (2 - Tdap) DTaP/Tdap/Td vaccine (2 - Tdap) [place], [place] Start: 01-22-2012 Hepatitis B vaccine (2 of 3 - 3-dose primary series) Hepatitis B vaccine (2 of 3 - 3-dose primary series) [place] Start: 02-17-2008 HIV screening HIV screen [place], [place] Start: 2005 COVID-19 Vaccine (1) COVID-19 Vaccin e (1) [facility] Work Phone: Start: 1994 Varicella vaccine (1 of 2 - 2-dose childhood series) Varicella vaccine (1 of 2 - 2-dose childhood series) [place], [place] Start: 1993 Hepatitis C screening Hepatitis C sc reen LE[facility] Work Phone: End: 06-28-2021 Urinalysis Urinalysis Lab STAT One Time for 1 Occurrences starting 06/28/2021 until 06/28/2021 [facility] Work Phone: Immunizations Immunization Date Immunization Notes Care Provider Fa heidyty 08-14-2019 Human Papillomavirus 9-valent vaccine [facility] 04-16-2019 Human Papillomavirus 9-valent vaccine [facility] 02-13-2019 Human Papillomavirus 9-valent vaccine [facility] 08-08-2012 influenza virus vacc ine, unspecified formulation [facility] [place] 12-25-2011 hepatitis B vaccine, unspecified formulation [facility] [place] Payers Date Payer Category Payer Unknown BC[place] BC[place] - [place] P PO xxxxxxxxxxxx 2018-Present [address] [place] [address] xxxxxxxxxxxx [id number] 2018 Unknown [place] P PO [id number] 2018-Present [address] [place] [address] [id number] 2015 [facility] xxxxxxxxxxx 2015-Present [phone] [address] [place] [address] xxxxxxxxxxx [id number] 2015 Unknown [facility] [id number] 2015-Present [phone] [address] [place] [address] [id number] Social History Date Type Detail Facility Start: 08-14-2019 End: 06-28-2021 Tobacco smoking status NHIS Never smoker [place], [place] Start: 08-14-2019 End: 06-28-2021 Alcohol intake Current non-drinker of alcohol (finding) [place], [place] Start: 1993 Sex Assigned At Female [place] Start: 06-28-2021 Tobacco use and exposure Never used [facility] Exposure to SARS-CoV -2 (event) Not sure [facility] Evaluation note Note Date & Type Note Facility documented in this encounter [facility] Work Phone: Hospital Discharge instructions Attachments Note Date & Type Note Facility Hospital Discharge instructions The following attachments cannot be sent through Care Everywhere.Miscarriage (Slovak)documented in this encounter [facility] Work Phone: Advance Directives No Advanced Directives Records FoundDocuments on File Type Date Recorded Patient Manufacturing Quality Engineer Expl anation Advance Directives and Living Will Power of Wrapping Machine Tender Documents on File Type Date Recorded Patient Manufacturing Quality Engineer Expl anation ACP-Advance Directive ACP-Power of Wrapping Machine Tender Summary Purpose Family History No Family History Records FoundNo Family History Records FoundNo Family History Records Found Additional Source Comments INFORMATION SOURCE (unrecogn ized section and content) DATE CREATED AUTHOR AUTHOR'S ORGANIZ ATION 09/20/2021 [facility] tem DATE CREATED AUTHOR AUTHOR'S ORGANIZ ATION 09/05/2022 [facility] Reason for Visit (unrecogniz ed section and content) Scheduled Active and Recently Administ ered Medications (unrecognized section and content) Linked Groups Order Group 1: Saline lock IV (COMPLETED) Routine, CONTINUOUS, Starting on Sun06/28/21 at 1730, Until Specified And sodium chloride flush 0.9 % injection 3 mLJump to med 3 mL, IntraVENous, EVERY 8 HOURS, First dose on Sun06/28/21 at 1726
Flush line with 3-5 mL
FOR RECORDS PERTAINING TO PATIENTS WHO ARE OR HAVE BEEN ENROLLED IN A CHEMICAL DEPENDENCY/SUBSTANCEABUSE PROGRAM, SOME INFORMATION MAY BE OMITTED. This clinical summary was aggregated from multiple sources. Caution should be exercised in using it in the provision of clinical care. This summary normalizes information from multiple sources, and as a consequence, information in this document may materially change the coding, format and clinical context of patient data. In addition, data may be omitted in some cases. CLINICAL DECISIONS SHOULD BE BASED ON THE PRIMARY CLINICAL RECORDS. [facility]. provides no warranty or guarantee of the accuracy or completeness of information in this document.
[2023-10-03 09:59] LABS: Vitamin B12 264 pg/mL (211-911)
[2023-10-03 11:05] LABS: Protein:Creat Ratio 194 mg/g CRE (0-200)
[2023-10-03 11:12] LABS: Ferritin 14 ng/mL (8-252); Iron 40 ug/dL (50-170); Iron Binding Capacity,Total 723 ug/dL (250-450); PERCENT IRON SATURATION 5.5 % (15.0-55.0)
[2023-10-03 11:18] LABS: ALB/GLOB Ratio 0.7 RATIO (0.9-2.4); AST(SGOT) 23 U/L (15-37); Alanine Aminotransfer ALT/SGPT 15 U/L (13-56); Alkaline Phosphatase 130 U/L (45-117); Anion Gap 4 (5-15); BUN 6 mg/dL (7-18); BUN/Creat Ratio 7.7 RATIO (10-20); Calcium,Total 9.2 mg/dL (8.5-10.1); Chloride 110 mmol/L (98-107); Creatinine, Serum 0.78 mg/dL (0.55-1.02); EST Glomerular Filtration Rate 92 mL/min (>60); Est Glom Filt Rate - Afr Amer 111 mL/min (>60); Globulin 4.4 g/dL (2.2-4.2); Glucose 69 mg/dL (74-106); Potassium 4.1 mmol/L (3.5-5.1); Protein, Total 7.4 g/dL (6.4-8.2); Sodium Level 138 mmol/L (136-145)
== END | disposition home or self-care (01) ==
LOC: LAB 08:59
PROVIDERS: Obstetrics & Gynecology; PCP Family Medicine; Visit Provider Nurse Practitioner Women's Health
DX: O99.013 Anemia complicating pregnancy, third trimester (principal); Z3A.00 Weeks of gestation of pregnancy not specified; O26.899 Other specified pregnancy related conditions, unspecified trimester; R51.9 Headache, unspecified
CPT/HCPCS: 36415; 80053; 82570; 82607; 82728; 82746; 83540; 83550; 84156; 85025

== ENCOUNTER 2023-10-18 20:40 | Inpatient (IN) | payer OTHER, SELFPAY ==
[2023-10-18] VITALS (11 sets, daily range): BP systolic 108–136; BP diastolic 63–93; PULSE 83–101; TEMP 36.8; O2SAT 87–100; BMI 24.0
--- NOTE | 2023-10-18 18:44 | HP.PCM.OB_ITS ---
HPI - General HPI Narrative ANGIE MICHEL, is a 28 y/o @ 38 weeks 2 days who presents to L&D with advanced cervical dilation. She was found to be 5/100/-1 with bulging membranes . She is GBS positive and has a history of precip delivery. Maternal Data Information ANGEL Calculator Estimated Delivery Date Method Current WG Current Estimate 10/30/23 LMP (Certain) 38w 2d PFSH PFSH Medical History Miscarriage Home Medications prenat.vits,samina,nwg-utka-lhskd 1 tab PO DAILY 01/09/22 [History Last Taken 09/02/22 23:00] ferrous sulfate 324 mg (65 mg iron) tablet,delayed release 324 mg PO BID #60 tabs 10/03/23 [Rx Last Taken Unknown] promethazine 12.5 mg tablet 12.5 mg PO Q6H PRN nausea and vomiting #60 tabs 10/03/23 [Rx Last Taken Unknown] Allergy/AdvReac Type Severity Reaction Status Date / Time fluticasone [From Flonase] Allergy Mild migraines Verified 10/18/23 16:00 Family History Grandmother Breast cancer great grandmother Grandfather Diabetes Heart disease Surgical History [place] teeth extracted Social History adopted: No household members: spouse current occupational status: employed current occupation: [employer] pets and animals: No Smoking Status: Never smoker alcohol intake: never substance use type: does not use caffeine: No what type of physical activity do you participate in: walking frequency: 1-2 times per week seatbelt use: always do you feel safe at home: Yes additional social history: -Huseyin History 2 Elective abortions Hx Para 0 Spontaneous abortions 1 Hx # Term Pregnancies Ectopic pregnancies Hx # Pregnancies Multiple births # of living children 1 Past Pregnancies Del. Date Name GA/Weeks Outcome Route Bth Weight Infant Gen Labor Lgth An esthesia Del Locatn Provider FOB Unknown 06/2021 miscarriage spontaneous 09/03/22 39 live - full term [facility] Ed Delivery Date: Last Updated by: Sola De Los Santos SUPERVISOR [employer]CRA[employer] CLEANING, SUPERVIS[employer]-C no intervention Delivery Date: 09/03/22 Last Updated by: Flory REYES Visit Details Expected Delivery Route/Plan Labor Preferences- CB/BF classes: no labor support person: Huseyin labor intervention preferences: [] pain management options preferred: limited intervention; hx of rapid labor cut cord/dad catch: yes : yes PP control planned: discussed discussed possible routes of delivery and associated risks: [] special requests: [] Plans Covid status: declined Flu vaccine: declines Tdap vaccine: declines Rhogam: NA LARC form signed: yes Problem list reviewed and updated with the most current plan of care details and appropriate orders placed. Relevant counseling for the gestational age provided. Continue routine care and follow up unless otherwise noted in visit not es/problem list details OB Flowsheet Initial Weight: 121 lb Date -?-?-?-?-?-?-?-?-?-?-?-?- EGA Weight BP Urine Prot -?-?-?-?-?-?-?-?-?-?-?-?- Glucose FHR FuHt Pres Dilation -?-?-?-?-?-?-?-?-?-?-?-?- Effaced St Visit Note 03/30/23 -?-?-?-?-?-?-?-?-?-?-?-?- 9w 3d 121 lb (+0 oz) 124/72 -?-?-?-?-?-?--?-?-?-?-?-?- 175 -?-?-?-?-?-?-?-?-?-?-?-?- LC- CRL=23mm con with LMP. ANGEL 10/30/2023. accepts nipt. will obtain next week. nob labs ordered. 04/23/23 -?-?-?-?-?-?-?-?-?-?-?-?- 12w 6d 119 lb 6 oz (-1 lb 10 oz) 120/72 -?-?-?-?-?-?-?-?-?-?-?-?- 160 -?-?-?-?-?-?-?-?-?-?-?-?- LC- no vb/crampi ng. normal nob labs. will add baseline PEC labs with P:C ratio. start on low dose baby aspirin for prevention. LC- no vb/cramping. normal n ob labs. will add baseline PEC labs with P:C ratio. start on low dose baby aspirin for prevention. discussed and declines afp. low risk nipt. 05/23/23 -?-?-?-?-?-?-?-?-?-?-?-?- 17w 1d 120 lb 2 oz (-14 oz) 119/72 Negative -?-?-?-?-?-?-?-?-?-?-?-?- Negative 154 -?-?-?-?-?-?-?-?-?-?-?-?- TRAVIS- pt has monae rns about the pec labs and baby asa. After further review of her chart she had some mild elevations in pressure after delivery that did not require bp meds. She was not induced for ghtn or pre-e. ok to hold on baby asa and only do labs at 28 weeks. Anatomy scan ordered. 06/18/23 -?-?-?-?-?-?-?-?-?-?-?-?- 20w 6d 118 lb 2 oz (-2 lb 14 oz) 119 lb (-2 lb) 128/75 Negative -?-?-?-?-?-?-?-?-?-?-?-?- Negative 151 -?-?-?-?-?-?-?-?-?-?-?-?- MH-No VB. Hermila senior. anatomy. 07/16/23 -?-?-?-?-?-?-?-?-?-?-?-?- 24w 6d 122 lb 4 oz (+1 lb 4 oz) 120/76 Negative -?-?-?-?-?-?-?-?-?-?-?-?- Negative 149 -?-?-?-?-?-?-?-?-?-?--?-?- JV- pt has compl aint of left posterior leg pain wrapping from back of thigh to anterior knee. + fm, no lof, vaginal bleeding, or dec fm. 08/08/23 -?-?-?-?-?-?-?-?-?-?-?-?- 28w 1d 123 lb 6 oz (+2 lb 6 oz) 118/72 Negative -?-?-?-?-?-?-?-?-?-?-?-?- Negative 155 28 -?-?-?-?-?-?-?-?-?-?-?-?- -No VB, LOF. G ood FM. Declines tdap. 28 wk labs and Pre E labs pending. Larc. 09/04/23 -?-?-?-?-?-?-?-?-?-?-?-?- 32w 0d 124 lb (+3 lb) 118/72 Negative -?-?-?-?-?-?-?-?-?-?-?-?- Negative 145 32 -?-?-?-?-?-?-?-?-?-?-?-?- - no vb lof go od fm no regular ctx 09/19/23 -?-?-?-?-?-?-?-?-?-?-?-?- 34w 1d 125 lb 4 oz (+4 lb 4 oz) 123/81 Negative -?-?-?-?-?-?-?-?-?-?-?-?- Negative 148 34 Cephalic -?--?-?-?-?-?-?-?-?-?-?-?- -No VB, LOF. G ood FM 10/03/23 -?-?-?-?-?-?-?-?-?-?-?-?- 36w 1d 123 lb 6 oz (+2 lb 6 oz) 120/84 Negative -?-?-?-?-?-?-?-?-?-?-?-?- Negative 146 35 Cephalic -?-?-?-?-?-?-?-?-?-?-?-?- -No VB, LOF or CTX. Headache X 3 days. Blurry vision today. Tylenol and caffeine not helpful. Hx of migraines. Pre E labs + Fe studies today. 10/11/23 -?-?-?-?-?-?-?-?-?-?-?-?- 37w 2d 125 lb 2 oz (+4 lb 2 oz) 120/81 Negative -?-?-?-?-?-?-?-?-?-?-?-?- Negative 150 36 Cephalic 4 -?-?-?-?-?-?-?-?-?-?-?-?- 70 -1 SM- no vb lof good fm no regular ctx 10/18/23 -?-?-?-?--?-?-?-?-?-?-?-?- 38w 2d 123 lb 6 oz (+2 lb 6 oz) 132/87 Negative -?-?-?-?-?-?-?-?-?-?-?-?- Negative 145 38 Cephalic 4 .5 -?--?-?-?-?-?-?-?-?-?-?-?- 100 -1 TRAVIS- artie caroline are bulging and patient states that she does not feel well. Plan to send to L&D to rule out labor. nurses may have some staffing issues. pt understands may just be on monitor and start pnc. ROS Constitutional Constitutional: Denies change in weight, fatigue, fever(s), headache(s), poor appetite or weakness Eyes Eyes: Denies blurry vision, change in vision, seeing flashes or spots in vision ENT HEENT: Denies dizziness, headache(s), loss taste/smell or sore throat Cardiovascular Cardiovascular: Denies chest pain, dizziness, dyspnea, irregular heart rhythm, leg edema, palpitations, rapid heart rate or vomiting Respiratory/Chest Respiratory/Chest: Denies chest tightness, cough, dyspnea or breast pain Gastrointestinal Gastrointestinal: Denies abdominal pain, anorexia, constipation, cramping, diarrhea, hemorrhoids, vomiting or weight changes Genitourinary Genitourinary: Denies dysuria, flank pain, genital lesions, genital pain, urinary frequency or urinary urgency Musculoskeletal Musculoskeletal: Denies back pain, difficulty walking, joint pain, limited range of motion, muscle cramps or numbness Integumentary Integumentary: Denies lesions or unusual bruising Neurologic Neurologic: Denies abnormal movements, abnormal speech, dizziness, numbness, seizure-like activity or syncope Psychiatric Psychiatric: Denies anxiety, behavioral changes, change in appetite, change in libido, cognitive impairment, confusion, depression, difficulty concentrating, hallucinations or suicidal thoughts Endocrine Endocrinology: Denies excessive sweating, polydipsia or polyuria Hematologic/Lymphatic Hematologic/Lymphatic: Denies easy bleeding, easy bruising or lymphadenopathy Allergic/Immunologic Allergic/Immunologic: Denies itchy eyes, lip swelling, seasonal rhinorrhea, rhinitis, throat swelling, tongue swelling, eczemia, wheezing or asthma Vital Signs Vital Signs Vital Signs: 10/18/23 17:10 10/18/23 17:11 10/18/23 17:11 Pulse Rate 101 H Blood Pressure 132/93 H BP Systolic 132 BP Diastolic 93 Pulse Ox 87 10/18/23 17:27 10/18/23 17:27 10/18/23 17:42 Pulse Rate 88 Blood Pressure 133/89 H 135/87 H BP Systolic 133 135 BP Diastolic 89 87 Pulse Ox 10/18/23 17:42 10/18/23 17:56 10/18/23 17:56 Pulse Rate 89 98 Blood Pressure 123/81 H BP Systolic 123 BP Diastolic 81 Pulse Ox 10/18/23 18:11 10/18/23 18:11 10/18/23 18:26 Pulse Rate 93 Blood Pressure 127/84 H 131/84 H BP Systolic 127 131 BP Diastolic 84 84 Pulse Ox 10/18/23 18:26 Pulse Rate 83 Blood Pressure BP Systolic BP Diastolic Pulse Ox Physical Exam Const alert, oriented x3, no apparent distress and healthy appearing General Appearance: cooperative; Negative for anxious HEENT normocephalic Face and Sinus: normal facial exam Eyes EOMs intact bilaterally and no scleral icterus General Eye: normal appearance of both eyes Neck full ROM and supple Lymph Lymphatic: no lymphadenopathy noted Chest Chest: abnormal inspection of the chest Resp normal respiratory effort Effort and Inspection: able to speak in complete sentences Cardio regular rate GI soft to palpation and non-tender Inspection: gravid Palpation: soft; Negative for tender external exam normal Amniotic Fluid: ROM+plus Back/Spine no CVA tenderness Extremity normal to inspection, full ROM and no clubbing, cyanosis or edema General Extremity: Negative for calf tenderness or edema Skin Lesions: no lesions Rashes: no rashes Psych mental status grossly normal Labs Labs Labs: Blood Type O POSITIVE Antibody Screen NEGATIVE Hct 36.7 % (37-47) L Hgb 11.2 g/dL (12.0-15.0) L Obstetrics Ultrasound Syphilis Total Ab Non-reactive Rubella IgG Antibody Reactive (Nonreactive) Hep Bs Antigen Non-Reactive (Nonreactive) Hepatitis C Antibody Non-Reactive (Nonreactive) Chlamydia DNA (JUNITO) Negative (Negative) N.gonorrhoeae DNA (JUNITO) Negative (Negative) HIV 1&2 Antibody Non-Reactive (Nonreactive) Glucose 1 Hr 50 gm 136 mg/dL (70-140) Gest Glucose Tolerance MG/DL Assessment & Plan (1) Anemia in preg-unspec: QUALIFIERS: Trimester: third trimester Qualified Code(s): O99.013 - Anemia complicating , third trimester COMMENT: add FE. recheck 4 wk (2) History of pre-eclampsia: COMMENT: ASA and pre-e labs on hold per conversation with JV (see chart note) (3) Positive GBS test: COMMENT: treat in labor. positive in urine culture (4) Supervision of high-risk : QUALIFIERS: Trimester: third trimester Qualified Code(s): O09.93 - Supervision of high risk , unspecified, third trimester COMMENT: PRR ANGEL 10/30/2023 PC: Abilio. :Huseyin (5) Short interval between pregnancies complicating , antepartum: (6) : QUALIFIERS: Weeks of gestation: 38 weeks Qualified Code(s): Z3A.38 - 38 weeks gestation of COMMENT: NIPT low risk, anatomy nl (7) depression: COMMENT: zoloft. counseling encouraged; stable PLAN: Plan The plan was to augment labor after pcn was started. unfortunately due to staffing issues the plan changed and we will be starting pcn and breaking water in the am. She is showing irregular contractions currently.
--- OUTSIDE RECORDS SUMMARY | 2023-10-18 20:44 | XMS RPT_ITS | CCD ---
Author Name Unknown Address [address] [place] [address] Organization [facility] Care Team Providers Care Sales Utility Representative Name Role Phone John Ladd Primary Care Provider [phone] Allergies Allergy Classification Reported Allergen(s) Allergy Type Date of Onset Reaction(s) Facility (2 sources) fluticasone Drug Allergy 09-26-2016 [facility] Comments[facility] [place] Medications Current Medications Medication Drug Class(es) Dates [...] nightly 30 tablet 11 04/05/2017 Active Vit w/Oc-Ijvalpiue-RC (PNV PO) (1 source) Vit w/Ho-Ccdmlcixq-TT (PNV PO) Take by mouth 0 Active [...] 23.05 kg/m2 Candelaria Staton DO Work Phone: [employer] Work Phone: 06-28-2021 16:43-0400 Body temperature 97.59 [degF] Candelaria Staton DO Work Phone: [employer] Work Phone: 06-28-2021 16:43-0400 Body weight 53.52 kg Candelaria Staton DO Work Phone: [employer] Work Phone: 06-28-2021 16:43-0400 Diastolic blood pressure 75 mm[Hg] Candelaria Staton DO Work Phone: [employer] Work Phone: 06-28-2021 16:43-0400 Heart rate 87 /min Candelaria Staton DO Work Phone: [employer] Phone: 06-28-2021 16:43-0400 Respiratory rate 16 /min Candelaria Staton DO Work Phone: [employer] Phone: 06-28-2021 16:43-0400 SaO2% (BldA) [Mass fraction] 100 % Candelaria Staton DO Work Phone: [employer] Phone: 06-28-2021 16:43-0400 Systolic blood pressure 124 mm[Hg] Candelaria Staton DO Work Phone: [employer] Phone: Encounters Encounter Date Encounter Type Care Provider Facility Start: 06-28-2021 End: 06-28-2021 Emergency department patient visit Candelaria Staton DO Work Phone: [facility] ED Procedures Date Procedure Procedure Detail Performing [...] Obstetrics and Gynecology Katiuska Krueger MD [address] [place], [place] [id number] [facility] CLINICAL SERVICES SPECIALIST Start: 02-13-2022 Screening for malign ant neoplasm of cervix [place], [place] Start: 07-01-2021 End: 07-01-2021 Patient encounter procedure [facility] Start: 04-27-2021 Influenza vaccination Flu vaccine (# 1) [facility] Work Phone: Start: 04-27-2020 Influenza vaccination Flu vacc ine (Season Ended) [place], [place] Start: 02-19-2020 End: 02-19-2020 Office Visit 02/19/2020 Office Visit Obstetrics and Gynecology Katiuska Krueger MD [address] [place], [place] [id number] [facility] CLINICAL SERVICES SPECIALIST Start: 02-17-2012 DTaP/Tdap/Td vaccine (2 - Tdap) DTaP/Tdap/Td vaccine (2 - Tdap) [place], [place] Start: 01-22-2012 Hepatitis B vaccine (2 of 3 - 3-dose primary series) Hepatitis B vaccine (2 of 3 - 3-dose primary series) [place] Start: 02-17-2008 HIV screening HIV screen [place], [place] Start: 2005 COVID-19 Vaccine (1) COVID-19 Vaccin e (1) [facility] Work Phone: Start: 1994 Varicella vaccine (1 of 2 - 2-dose childhood series) Varicella vaccine (1 of 2 - 2-dose childhood series) [place], [place] Start: 1993 Hepatitis C screening Hepatitis C sc reen [facility] Work Phone: End: 06-28-2021 Urinalysis Urinalysis Lab STAT One Time for 1 Occurrences starting 06/28/2021 until 06/28/2021 [facility] Work Phone: Immunizations Immunization Date Immunization Notes Care Provider Fa heidyty 08-14-2019 Human Papillomavirus 9-valent vaccine [facility] 04-16-2019 Human Papillomavirus 9-valent vaccine [facility] 02-13-2019 Human Papillomavirus 9-valent vaccine [facility] 08-08-2012 influenza virus vacc ine, unspecified formulation [facility] [place] 12-25-2011 hepatitis B vaccine, unspecified formulation [facility] [place] Payers Date Payer Category Payer Unknown BC[place] BC[place] - [place] P PO xxxxxxxxxxxx 2018-Present [address] [place] [address] xxxxxxxxxxxx [id number] 2018 Unknown [place] P PO [id number] 2018-Present [address] [place] [address] [id number] 2015 [facility] xxxxxxxxxxx 2015-Present [phone] [address] [place] [address] xxxxxxxxxxx [id number] 2015 Unknown [facility] [id number] 2015-Present [phone] [address] [place] [address] [id number] Social History Date Type Detail Facility Start: 08-14-2019 End: 06-28-2021 Tobacco smoking status NHIS Never smoker [place], [place] Start: 08-14-2019 End: 06-28-2021 Alcohol intake Current non-drinker of alcohol (finding) [place], [place] Start: 1995 Sex Assigned At Female M [place], [place] Start: 06-28-2021 Tobacco use and exposure Never used [facility] Exposure to SARS-CoV -2 (event) Not sure [facility] Evaluation note Note Date & Type Note Facility documented in this encounter [facility] Work Phone: Hospital Discharge instructions Attachments Note Date & Type Note Facility Hospital Discharge instructions The following attachments cannot be sent through Care Everywhere.Miscarriage (Spanish)documented in this encounter [facility] Work Phone: Advance Directives No Advanced Directives Records FoundDocuments on File Type Date Recorded Patient Cotton Tier Expl anation Advance Directives and Living Will Power of Filler In Documents on File Type Date Recorded Patient Cotton Tier Expl anation ACP-Advance Directive ACP-Power of Filler In Summary Purpose Family History No Family History Records FoundNo Family History Records FoundNo Family History Records Found Additional Source Comments INFORMATION SOURCE (unrecogn ized section and content) DATE CREATED AUTHOR AUTHOR'S ORGANIZ ATION 09/20/2021 [facility] tem DATE CREATED AUTHOR AUTHOR'S ORGANIZ ATION 09/05/2022 [facility] Reason for Visit (unrecogniz ed section and [...] BE BASED ON THE PRIMARY CLINICAL RECORDS. [facility]. provides no warranty or guarantee of the accuracy or completeness of information in this document.
[2023-10-18 20:57] LABS: Absolute Lymphocyte Count 2.29 X10^3/uL (0.83-4.51); Absolute Neutrophil Count 6.1 X10^3/uL (2.0-7.7); Basophil# 0.04 X10^3/uL; Basophil% 0.4 % (0-1); Eosinophil# 0.27 X10^3/uL; Eosinophils% 2.8 % (0-5); Hemoglobin 10.4 g/dL (12.0-15.0); Lymphocyte # 2.29 X10^3/ul (0.83-4.51); Lymphocyte % 24.1 % (19-41); Mean Corp Hgb Conc 30.6 g/dL (32-36); Mean Corpuscular Volume 71.9 fL (81-99); Mean Platelet Vol. 10.2 fl (6.2-12.0); Monocyte# 0.71 X10^3/uL; Monocyte% 7.5 % (0-10); NRBC Flagged by Analyzer 0 % (0-5); Neutrophil # 6.13 X10^3/uL (2.7-7.7); Neutrophil % 64.4 % (47-70); Platelet Count 291 K/mm3 (150-450); RBC Distribution Width CV 16.5 % (11.6-14.6); RBC Distribution Width SD 41.7 fl (35.1-43.9); Red Blood Count 4.73 M/mm3 (4.2-5.4); White Blood Count 9.5 K/mm3 (4.4-11.0)
[2023-10-18 21:14] LABS: AST(SGOT) 26 U/L (15-37); Alanine Aminotransfer ALT/SGPT 16 U/L (13-56); Creatinine, Serum 0.73 mg/dL (0.55-1.02); EST Glomerular Filtration Rate 99 mL/min (>60); Est Glom Filt Rate - Afr Amer 120 mL/min (>60); Estimated Creatinine Clearance 88.39 ml/min; Uric Acid 5.8 mg/dL (2.6-6.0)
[2023-10-18 21:33] LABS: Syphilis Antibodies Non-reactive
[2023-10-18] MEDS: Acetaminophen 500 MG Tablet PO (21:40)
[2023-10-18] MEDS: Lactated Ringers 1,000 ML 50 ML IV (21:41)
[2023-10-18] MEDS: Ondansetron 4 MG/2 ML Vial IV (21:41)
[2023-10-18] MEDS: Penicillin G Pot 5,000,000 UNITS in 0.9% Normal Saline (100mL MB+) 100 ML 150 UNITS IV (21:41)
[2023-10-19] VITALS (54 sets, daily range): BP systolic 100–137; BP diastolic 57–89; PULSE 74–126; RESP 16; TEMP 36.6–36.8; O2SAT 96–100
[2023-10-19] MEDS: Mag Hydrox/Al Hydrox/Simeth 30 ML UDC PO (00:36)
[2023-10-19 01:17] LABS: Protein, Urine (Random) 20.5 mg/dL (<11.9); Protein:Creat Ratio 186 mg/g CRE (0-200)
[2023-10-19] MEDS: LACTATED RINGERS 500 ML 999 ML IV (01:51)
[2023-10-19] MEDS: Penicillin G 3,000,000 Units 50 ML 100 UNITS IV (03:31)
[2023-10-19] MEDS: fentaNYL-bupivacaine (epidural) 100 ML BAG EPIDURAL (03:33)
[2023-10-19] MEDS: 0.9% Saline Lock 10 ML Syringe IV ×2 (03:40→08:51)
[2023-10-19] MEDS: Ondansetron 4 MG/2 ML Vial IV (03:40)
[2023-10-19] MEDS: Oxytocin 10 UNITS/ML Vial IM (05:17)
[2023-10-19] MEDS: Oxytocin 15 Units/NS 250ml 15 UNITS/250 ML IV.SOLN 83 UNITS IV (05:25)
--- NOTE | 2023-10-19 06:47 | EX.PCM.OBRPT ---
Assessment & Plan (1) History of pre-eclampsia: COMMENT: ASA and pre-e labs on hold per conversation with JV (see chart note) (2) Anemia in preg-unspec: QUALIFIERS: Trimester: third trimester Qualified Code(s): O99.013 - Anemia complicating , third trimester COMMENT: add FE. recheck 4 wk (3) Abnormal glucose affecting : COMMENT: Normal 3 hr GTT (4) Migraine without aura: (5) Headache in : QUALIFIERS: Trimester: third trimester Qualified Code(s): O26.893 - Other specified related conditions, third trimester; R51.9 - Headache, unspecified COMMENT: Pre E labs and BP WNL (6) Positive GBS test: COMMENT: treat in labor. positive in urine culture (7) Supervision of high-risk : QUALIFIERS: Trimester: third trimester Qualified Code(s): O09.93 - Supervision of high risk , unspecified, third trimester COMMENT: PRR ANGEL 10/30/2023 PC: Abilio. :Huseyin (8) Short interval between pregnancies complicating , antepartum: (9) : QUALIFIERS: Weeks of gestation: 38 weeks Qualified Code(s): Z3A.38 - 38 weeks gestation of COMMENT: NIPT low risk, anatomy nl (10) depression: COMMENT: zoloft. counseling encouraged; stable (11) Vaginal delivery: COMMENT: SM IAL 6cm Maternal Data Information ANGEL Calculator Estimated Delivery Date Method Current WG Current Estimate 10/30/23 LMP (Certain) 38w 3d Vaginal Delivery Operative Information Date of Procedure: 10/19/23 Pre-Operative Diagnosis: see a/p diagnoses Post-Operative Diagnosis: same Surgery / Procedure Performed: Spontaneous Vaginal Delivery Type of Anesthesia: Epidural Special Medications: none Estimated Blood Loss: 200 Fluids Replaced: crystalloid Findings Description of Procedure: Patient began pushing and delivered the head in the VILMA presentation. The head was delivered atraumatically and a loose nuchal cord ?2 was identified and the infant delivered through without complication. The anterior and posterior shoulders delivered without complication followed by the rest of the infant and the was placed on the maternal abdomen. Delayed cord clamping was employed for approximately 60 seconds. Cord was clamped and cut and gentle traction was applied to the cord and the placenta delivered spontaneously immediately following it was noted to be intact with three-vessel cord. The perineum and vagina were inspected and noted to have no laceration. EBL was 200 cc. Patient and tolerated delivery well. Amniotic Fluid Description: Clear Placental Delivery Description: Spontaneous Placenta Disposition: [facility] Cord Vessel Description: 3 Vessels Cord Entanglement: Around neck x 2, loose Delayed Cord Clamping: Yes Post Vaginal Delivery Medications Given After Delivery: IV Pitocin Episiotomy Description: None Complication Complications: None Procedures Urinary/Genital [id number]: [id number] Vaginal Delivery [facility]
--- NOTE | 2023-10-19 06:53 | DCINST_ITS ---
Discharge Instructions Diet Discharge Diet: No restrictions Activity Discharge Activity: Return to Normal Activity, May Not Drive (while taking narcotic pain medications.) and May Shower May resume sexual activity in: 4-6 weeks Dressing / Incision Call your doctor if your incision/area has: Continuous Slow Oozing, Sudden Increased Bleeding, Increased Pain/ Swelling, Increased Redness and Foul Smelling Discharge Follow Up Care Please Follow Up With: Zari Ward MD When: Call [phone] to make an appointment with your doctor in 6 weeks. If you had elevated blood pressure or 4th degree laceration, you will need to be seen in 2 weeks. Test Results: Test results from this visit will be discussed in further detail at your follow- up appointment, if applicable. Discharge Plan Admission Admit Date/Time: 10/18/23 20:40 Attending Provider: Zari Ward Primary Care Provider: Joy Ku Discharge Orders/Prescriptions Prescriptions: No Action prenat.vits,samina,kkq-lkbk-gmpvl Tablet 1 tab PO DAILY ferrous sulfate 324 mg (65 mg iron) tablet,delayed release (DR/EC) 324 mg PO BID Qty: 60 3RF promethazine 12.5 mg tablet 12.5 mg PO Q6H PRN (Reason: nausea and vomiting) Qty: 60 2RF Referrals / Follow Up: Joy Ku MD [Primary Care Provider] - Disposition Disposition (needs filled in before D/C Order can be placed): Home, Self Care
[2023-10-19] MEDS: Naproxen 500 MG Tablet PO (13:07)
--- NOTE | 2023-10-19 14:11 | CASEMGMT ---
Social Work Assessment Labor and Delivery Unit Patient Address:[facility] [place] [address] Phone number: [phone] Date of Referral: 10/19/23 Time of Referral:?829 Referred By: Zari Ward Date of Intervention: 10/19/23?? Time of Intervention:? 614 Reason for Referral:? PPD, anxiety Sw completed chart review and acknowledges maternal history of anxiety and depression. Sw presented to bedside and introduced self to mother of baby (BRITTNI- Yesenia) and father of baby (FOYogesh- Huseyin). Sw explained sw role during hospitalization and completed psychosocial assessment. History obtained from: medical records, MOB and FOB Household composition: Currently residing in the family home is CHASIDY ELKINS, their 1 year old son, Jacky and now baby. Parents deny any issues or concerns with their housing. Patient's parent/guardian status:? BRITTNI states that she and CHASIDY have been together for 7 or 8 years. [facility]. No reports or concerns of domestic violence or intimate partner violence. This is second baby for both parents. ? Medical History: ?BRITTNI is 28 year old female who is 3, para 1-now 2 following labor and delivery. BRITTNI received routine care during with [place]. BRITTNI presented to hospital and delivered baby on 10/19/23 via vaginal delivery at 38 weeks gestation. Baby girl, named Nataliia was born weighing 6lb 4oz and her apgars were 8 and 9 at one and five minutes of life, respectfully. BRITTNI states that she is breast feeding and so far it is going well. BRITTNI reports that baby will be followed by Dr. Kingsley for pediatrics. Educational Status:? Both parents graduated from high school and obtained Bachelor's degrees. Financial Status: Both parents are gainfully employed outside of the home. 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 Infant Supplies:?? All necessary baby supplies have been obtained, including: car seat, safe sleep space, clothes, diapers and wipes. BRITTNI states that she also has a breast pump for home. Childcare/Caregiver(s):? When parents are working maternal and paternal grandma's will assist with childcare. Transportation:?? No barriers Programs/Agencies Involved: ???Parents are over income for community resources that provide financial assistance. MOB denies linkage to counseling supports. Children Services/Legal Issues:??? No history of involvement, no issues or concerns warranting a referral to be made at this time. Behavioral Health Issues: ??Mental Health History:?CHASIDY denies mental health history. BRITTNI states that she has struggled with anxiety in the pst, and reports that she struggled with the baby blues and anxiety. CHASIDY states that BRITTNI was not sleeping and was anxious about everything. BRITTNI states that she struggled with feednig baby, and that was a major contributing factor of her journey. BRITTNI states that she was prescribed anti anxiety medication (zoloft) and that helped her significantly. Substance Use History: BRITTNI denies??substance use prior to and during . Family History: BRITTNI states that she has an aunt that has been diagnosed with schizophrenia and bipolar, and CHASIDY said he has an uncle that also has been diagnosed with those same diagnoses.? Drug Screens: ?No drug screens observed during chart review? Family/Social Stressors:? Parents deny any significant stressors at this time. Parents state that their one year old son is very ornery and gets into everything. Parents and sw discussed how this may impact bringing home a . Support Systems: Both sets of grandparents are supportive. Depression/Shaken Baby/Safe Sleeping:? Sw educated parents on signs and symptoms of baby blues and depression and anxiety. Sw provided parents with literature for them to review that provides appropriate coping skills should MOB struggle. Parents express understanding. Sw educated parents on shaken baby prevention and ABCs of safe sleep. Parents express understanding. ASSESSMENT:? MOB and baby admitted following labor and delivery. MOB and FOB talkative and engaging during psychosocial assessment. Parents answered questions and elaborated with answers. Parents open and receptive to sw involvement and support. Parents made and maintained eye contact and were pleasant. Parents have obtained all necessary baby supplies and have adequate natural supports in place. PLAN:?MOB and baby to be discharged when medically ready. ?No other services requested or indicated. Shannen Chiang, PROFESSOR OF PHYSICS, CITY COUNCILMAN
[2023-10-19] MEDS: Acetaminophen 500 MG Tablet 1000 MG PO ×2 (15:31→21:24)
[2023-10-20 00:07] VITALS: BP 121/73; PULSE 81; RESP 16; TEMP 36.6; O2SAT 98
[2023-10-20 04:30] VITALS: BP 129/77; PULSE 83; RESP 16; TEMP 36.3; O2SAT 97
[2023-10-20] MEDS: Acetaminophen 500 MG Tablet 1000 MG PO ×2 (04:53→10:38)
[2023-10-20] MEDS: Naproxen 500 MG Tablet PO (04:53)
[2023-10-20 08:15] VITALS: BP 121/77; PULSE 72; RESP 16; TEMP 36.3; O2SAT 98
--- NOTE | 2023-10-20 10:29 | PCM.PN.OB ---
Subjective Subjective Patient doing well without complaints. Tolerating PO. Ambulating and voiding without difficulty. Feeding well. Denies chest pain, shortness of breath, calf pain/swelling, fevers, chills, lightheadedness. Objective Data Objective Data Vital Signs: Vital Signs Temp Pulse Resp BP Pulse Ox O2 Del Method 97.3 F L 72 16 121/77 H 98 Room Air 10/20/23 08:15 10/20/23 08:15 10/20/23 08:15 10/20/23 08:15 10/20/23 08:15 10/20/23 08:15 Oxygen Delivery Method Room Air Weight: 123 lb 6.4 oz Body Mass Index (BMI) 24.0 Intake & Output: Intake and Output for Last 24 Hours 10/18/23 10/19/23 10/20/23 23:59 23:59 23:59 Intake Total 190.83 / 190.83 1480.00 / 1480.00 Output Total 550 / 550 Balance 190.83 / 190.83 930.00 / 930.00 Lab / Micro Data 10/18/23 20:40 10/18/23 20:40 Physical Exam Const alert and no apparent distress Neck full ROM Lymph Lymphatic: no lymphadenopathy noted Chest inspection of chest normal Resp normal respiratory effort, normal air movement and no retractions Cardio regular rate and regular rhythm GI normal to inspection, nondistended, normoactive bowel sounds Uterus Palpation: uterus fundus firm Extremity normal to inspection and full ROM Skin no rashes or lesions noted Psych mental status grossly normal Assessment & Plan (1) Migraine without aura: (2) depression: COMMENT: joleent. counseling encouraged; stable PLAN: Plan s/p PPD # 1 1. routine post delivery care 2. breast feeding- support given 3. rh positive 4. rubella immune 5. d/c home today
== END 2023-10-20 11:00 | disposition home or self-care (01) | DRG 807 ==
LOC: WPOUT 20:42 → WP 20:42
PROVIDERS: Obstetrics & Gynecology; Admitting Provider Obstetrics & Gynecology; PCP Family Medicine; Referring Provider Obstetrics & Gynecology; Visit Provider Obstetrics & Gynecology
DX: O99.824 Streptococcus B carrier state complicating childbirth (principal); Z37.0 Single live birth; O26.23 Pregnancy care for patient with recurrent pregnancy loss, third trimester; B95.1 Streptococcus, group B, as the cause of diseases classified elsewhere; G43.009 Migraine without aura, not intractable, without status migrainosus; O99.354 Diseases of the nervous system complicating childbirth; O69.81X0 Labor and delivery complicated by cord around neck, without compression, not applicable or unspecified; O99.02 Anemia complicating childbirth; Z79.899 Other long term (current) drug therapy; Z87.59 Personal history of other complications of pregnancy, childbirth and the puerperium; Z3A.38 38 weeks gestation of pregnancy
CPT/HCPCS: 59025; 59050; 82565; 82570; 84156; 84450; 84460; 84550; 85025; 86780; 86850; 86900; 86901; 99221; J7120; A4216; G0378; J2405